=== PATIENT | female | born 1990 | race Caucasian/White ===

== ENCOUNTER 2020-05-22 11:09 | Outpatient (CLI) | payer OTHER ==
[2020-05-22 15:04] LABS: INR 1.1 (0.8-1.2)
[2020-05-22 15:20] LABS: ALBUMIN 3.8 g/dL (3.2-5.5); BILIRUBIN,TOTAL 1.7 mg/dL (0.2-1.0); CALCIUM 9.8 mg/dL (8.5-10.3); CREATININE 0.6 mg/dL (0.4-1.0); TOTAL PROTEIN 7.8 g/dL (6.7-8.2)
[2020-05-22 15:27] LABS: FOLATE 16.41 ng/mL (5.90 - >24.8)
== END 2020-05-22 11:10 | disposition home or self-care (01) ==
LOC: LAB.S 11:09
PROVIDERS: ATTEND Nurse Practitioner Family
DX: R74.01 Elevation of levels of liver transaminase levels (principal); R74.8 Abnormal levels of other serum enzymes; D69.6 Thrombocytopenia, unspecified
CPT/HCPCS: 36415; 80053; 81599; 82306; 82607; 82728; 82746; 82977; 83540; 83615; 83915; 83970; 84466; 84702; 85025; 85610; 86704; 86706; 86708; 86803; 87340

== ENCOUNTER 2020-05-30 08:00 | Outpatient (CLI) | payer OTHER ==
--- NOTE | 2020-05-30 14:26 | Ultrasound Report ---
PROCEDURE: Abdomen Limited INDICATIONS: ELEVATED LIVER ENZYMES TECHNIQUE: Real-time scanning was performed of the abdominal and retroperitoneal organs, with image documentatio n. COMPARISON: None. FINDINGS: Liver: Liver is enlarged with coarsened and nodular echotexture. Gallbladder: No stones are identified. Wall thickness is within normal limits measuring 1.7 mm. Biliary ducts: Intrahepatic bile ducts are non-dilated. Extrahepatic bile duct caliber measures 5.7 mm. Normal is 6-7 mm or less in diameter, or 10 mm or less post-cholecystectomy. Pancreas: Visualized portions of the pancreas are sonographically normal. Peripancreatic lymph node s present without pathologic enlargement. Spleen: Spleen is normal in size and homogeneous in echotexture. Kidneys: Kidneys are normal in size and echotexture. Right kidney measures 12.9 cm long. No hydron ephrosis or nephrolithiasis. No solid masses. IMPRESSION: 1. Hepatomegaly with nodular appearance suggestive of cirrhosis. Reviewed by: Cielo Cleary MD on 05/30/2020 2:25 PM PST Approved by: Cielo Cleary MD on 05/30/2020 2:25 PM PST Station ID: [id number]
--- NOTE | 2020-05-30 18:13 | Ultrasound Report ---
PROCEDURE: Head or Neck Soft Tissue INDICATIONS: ELEVATED LIVER ENZYMES TECHNIQUE: Real time scanning was performed of the neck region of interest, with image documentation . COMPARISON: None. FINDINGS: No soft tissue neck abnormality seen bilaterally in There are multiple lymph nodes presen t demonstrating normal esteban morphology, largest measuring up to 5.0 mm in short axis. IMPRESSION: Multiple morphologically normal-appearing in size bilateral neck lymph nodes. Reviewed by: DION Acevedo on 05/30/2020 6:12 PM PST Approved by: Cielo Cleary MD on 05/30/2020 6:12 PM PST Station ID: [id number]
== END 2020-05-30 08:01 | disposition home or self-care (01) ==
LOC: DI 08:00
PROVIDERS: ATTEND Nurse Practitioner Family
DX: R16.0 Hepatomegaly, not elsewhere classified (principal); R74.01 Elevation of levels of liver transaminase levels

== ENCOUNTER 2020-12-19 14:27 | Outpatient (CLI) | payer OTHER | END 2020-12-19 14:28 | disposition home or self-care (01) | LOC: COV 14:27 | PROVIDERS: ATTEND Family Medicine | DX: U07.1 COVID-19 (principal) ==

== ENCOUNTER 2021-03-15 18:13 | Emergency (ER) | payer OTHER ==
[2021-03-15 18:45] LABS: GLUCOSE, URINE (UA) NEGATIVE (NEGATIVE); KETONES,URINE (UA) 15 mg/dL (NEGATIVE); LEUKOCYTE ESTERASE, URINE NEGATIVE (NEGATIVE); NITRITE,URINE NEGATIVE (NEGATIVE); OCCULT BLOOD,URINE NEGATIVE (NEGATIVE); PROTEIN,URINE NEGATIVE (NEGATIVE); UROBILINOGEN,URINE 0.2 (NORMAL) E.U./dL (NORMAL)
[2021-03-15 18:51] LABS: BILIRUBIN,URINE SMALL (NEGATIVE); CLARITY,URINE CLEAR (CLEAR); ICTOTEST,URINE POSITIVE
[2021-03-15 18:52] LABS: HCG UR QUAL NEGATIVE
[2021-03-15 18:56] LABS: BACTERIA,URINE None Seen /HPF (None Seen); MUCUS,URINE Few Strands; RBC,URINE None Seen /HPF (0-5); SQUAMOUS EPITHELIAL CELL,UR FEW Squamous (<= Few); WBC,URINE 0-3 /HPF (0-5)
[2021-03-15 19:06] LABS: BASOPHILS # (AUTO) 0.1 10^3/uL (0.0-0.1); BASOPHILS % (AUTO) 0.8 %; EOSINOPHILS # (AUTO) 0.2 10^3/uL (0.0-0.7); EOSINOPHILS % (AUTO) 3.7 %; HCT - HEMATOCRIT 39.9 % (37.0-47.0); HGB - HEMOGLOBIN 13.4 g/dL (12.0-16.0); LYMPHOCYTES # (AUTO) 0.4 10^3/uL (1.5-3.5); LYMPHOCYTES % (AUTO) 5.6 %; MEAN CORPUSCULAR HEMOGLOBIN 31.4 pg (27.0-31.0); MEAN CORPUSCULAR HGB CONC 33.6 g/dL (32.0-36.0); MEAN CORPUSCULAR VOLUME 93.4 fL (81.0-99.0); MEAN PLATELET VOLUME 11.5 fL (7.9-10.8); MONOCYTES # (AUTO) 0.2 10^3/uL (0.0-1.0); MONOCYTES % (AUTO) 3.4 %; NEUTROPHILS # (AUTO) 5.5 10^3/uL (1.5-6.6); NEUTROPHILS % (AUTO) 86.3 %; PLT - PLATELET COUNT 64 10^3/uL (130-450); RED BLOOD COUNT 4.27 10^6/uL (4.20-5.40); RED CELL DISTRIBUTION WIDTH 14.1 % (12.0-15.0); WHITE BLOOD COUNT 6.4 x10^3/uL (4.8-10.8)
[2021-03-15 19:16] LABS: ALBUMIN 3.6 g/dL (3.2-5.5); BILIRUBIN,TOTAL 3.3 mg/dL (0.2-1.0); CALCIUM 9.1 mg/dL (8.5-10.3); CREATININE 0.6 mg/dL (0.4-1.0); POTASSIUM 3.9 mmol/L (3.5-5.0); TOTAL PROTEIN 7.3 g/dL (6.7-8.2)
--- NOTE | 2021-03-15 19:46 | ED Physician Documentation ---
History of Present Illness - Stated complaint Stated Complaint: ABD/BACK PX - Chief complaint Chief Complaint: Back Pain - History obtained from History obtained from: Patient - History of Present Illness Timing: Today Pain level max: 8 Pain level now: 6 - Additonal information Additional information: Patient is a 30-year-old female who states that she has a longstanding history of alcohol abuse. She states she drinks very heavily 2-3 times a week, but has not drank in 19 days. She complains of epigastric abdominal pain that started around noon today. Nothing makes it better or worse. She states she has had nausea and vomiting as well. She has a history of elevated liver function tests, likely secondary to her alcohol abuse. Review of Systems Ten Systems: 10 systems reviewed and negative Constitutional: denies: Fever, Chills Nose: denies: Rhinorrhea / runny nose, Congestion GI: denies: Vomiting, Diarrhea Skin: denies: Rash Musculoskeletal: denies: Neck pain, Back pain Neurologic: denies: Focal weakness, Numbness, Headache PD PAST MEDICAL HISTORY - Past Medical History Past Medical History: No - Past Surgical History Past Surgical History: No - Allergies Allergies/Adverse Reactions: Allergies Allergy/AdvReac Type Severity Reaction Status Date / Time No Known Drug Allergies Allergy Verified 03/15/21 18:29 - Living Situation Living Situation: reports: With family Living Arrangement: reports: At home - Social History Does the pt drink ETOH?: Yes Does the pt have substance abuse?: No - Family History Family history: reports: Non contributory PD ED PE NORMAL - Vitals Vital signs reviewed: Yes - General General: Alert and oriented X 3, No acute distress, Well developed/nourished - HEENT HEENT: PERRL, Moist mucous membranes - Neck Neck: Supple, no meningeal sign - Cardiac Cardiac: RRR - Respiratory Respiratory: No respiratory distress, Clear bilaterally - Abdomen Abdomen: Normal bowel sounds, Soft, Non distended, Other (TTP RUQ, + vasquez's sign) - Derm Derm: Warm and dry - Extremities Extremities: No edema - Neuro Neuro: Alert and oriented X 3 - Psych Psych: Normal mood, Normal affect Results - Vitals Vitals: Vital Signs - 24 hr 03/15/21 03/15/21 03/15/21 18:24 19:44 21:00 Temperature 98.9 C H Heart Rate 92 90 89 Respiratory 18 18 Rate Blood Pressure 128/78 128/93 H 129/74 O2 Saturation 98 98 100 Oxygen O2 Source Room air - Labs Labs: Laboratory Tests 03/15/21 03/15/21 03/15/21 18:30 18:35 18:56 WBC 6.4 RBC 4.27 Hgb 13.4 Hct 39.9 MCV 93.4 MCH 31.4 H MCHC 33.6 RDW 14.1 Plt Count 64 L MPV 11.5 H Neut # (Auto) 5.5 Lymph # (Auto) 0.4 L Dade # (Auto) 0.2 Eos # (Auto) 0.2 Baso # (Auto) 0.1 Absolute Nucleated RBC 0.00 Nucleated RBC % 0.0 PT INR APTT Sodium Potassium Chloride Carbon Dioxide Anion Gap BUN Creatinine Estimated GFR (MDRD) Glucose Calcium Total Bilirubin AST ALT Alkaline Phosphatase Total Protein Albumin Globulin Albumin/Globulin Ratio Lipase Urine Color DARK YELLOW Urine Clarity CLEAR Urine pH 6.0 Ur Specific Edison 1.025 Urine Protein NEGATIVE Urine Glucose (UA) NEGATIVE Urine Ketones 15 H Urine Occult Blood NEGATIVE Urine Nitrite NEGATIVE Urine Bilirubin SMALL H Urine Urobilinogen 0.2 (NORMAL) Ur Leukocyte Esterase NEGATIVE Urine RBC None Seen Urine WBC 0-3 Ur Squamous Epith Cells FEW Squamous Urine Bacteria None Seen Urine Mucus Few Strands Urine Culture Comments NOT INDICATED Urine HCG, Qual NEGATIVE Ethyl Alcohol < 5.0 03/15/21 03/15/21 18:56 19:48 WBC RBC Hgb Hct MCV MCH MCHC RDW Plt Count MPV Neut # (Auto) Lymph # (Auto) Dade # (Auto) Eos # (Auto) Baso # (Auto) Absolute Nucleated RBC Nucleated RBC % PT 12.7 H INR 1.1 APTT 34.9 H Sodium 134 L Potassium 3.9 Chloride 100 L Carbon Dioxide 24 Anion Gap 10.0 BUN 11 Creatinine 0.6 Estimated GFR (MDRD) 116 Glucose 110 H Calcium 9.1 Total Bilirubin 3.3 H AST 112 H ALT 133 H Alkaline Phosphatase 479 H Total Protein 7.3 Albumin 3.6 Globulin 3.7 Albumin/Globulin Ratio 1.0 Lipase 29 Urine Color Urine Clarity Urine pH Ur Specific Edison Urine Protein Urine Glucose (UA) Urine Ketones Urine Occult Blood Urine Nitrite Urine Bilirubin Urine Urobilinogen Ur Leukocyte Esterase Urine RBC Urine WBC Ur Squamous Epith Cells Urine Bacteria Urine Mucus Urine Culture Comments Urine HCG, Qual Ethyl Alcohol - Rads (name of study) CT abd.pelvis Radiology: Final report received, EMP read contemporaneously, See rad report RUQ US Radiology: Other (awaiting results) PD MEDICAL DECISION MAKING - ED course Complexity details: reviewed results, re-evaluated patient, considered differential, d/w patient ED course: Patient is a 30-year-old female with abdominal pain, vomiting. Hepatosplenomegaly with abdominal and paraesophageal varices on CT scan along with a distended gallbladder. No gallstones on CT. Awaiting ultrasound results for final disposition. Patient will be signed out to Dr. Reynolds awaiting final disposition and reevaluation. Pain and nausea improved. This document was made in part using voice recognition software. While efforts are made to proofread this document, sound alike and grammatical errors may occur. IMPRESSION: 1. Hepatosplenomegaly. 2. Abdominal and paraesophageal varices. 3. Distended gallbladder. No gallstones identified. Departure - Departure Clinical Impression: Abdominal pain Qualifiers: Abdominal location: unspecified location Qualified Code(s): R10.9 - Unspecified abdominal pain Vomiting Qualifiers: Vomiting type: unspecified Nausea presence: with nausea Qualified Code(s): R11.2 - Nausea with vomiting, unspecified Esophageal varices Qualifiers: Esophageal varices type: unspecified type Esophageal varices bleeding: without bleeding Qualified Code(s): I85.00 - Esophageal varices without bleeding Condition: Stable
[2021-03-15] MEDS ORDERED: IOPAMIDOL-300 100 ML VIAL ONE (19:50)
[2021-03-15 20:06] LABS: INR 1.1 (0.8-1.2); PT - PROTHROMBIN TIME 12.7 secs (9.9-12.6)
[2021-03-15 20:13] LABS: PARTIAL THROMBOPLASTIN TIME 34.9 secs (24.9-33.3)
[2021-03-15] MEDS: MORPHINE 2 MG/ML CARPUJECT IVP STA (20:34)
[2021-03-15] MEDS: IOPAMIDOL-300 100 ML VIAL IVP ONE (21:03)
--- NOTE | 2021-03-15 21:27 | CT Report ---
PROCEDURE: Abdomen/Pelvis W INDICATIONS: epigastric abd pain CONTRAST: IV CONTRAST: Isovue 300 ml: 100 PO CONTRAST: *NO PO CONTRAST TECHNIQUE: After the administration of intravenous contrast, 5 mm thick sections acquired from the diaphragms to the symphysis. 5 mm thick coronal and sagittal reformats were acquired. For radiation dose reducti on, the following was used: automated exposure control, adjustment of mA and/or kV according to grazyna ent size. COMPARISON: None. FINDINGS: Image quality: Excellent. ABDOMEN: Lung bases: Minimal thickening at the left diaphragm. No pleural effusion. Heart size is normal. Solid organs: Liver is prominent. No focal lesion. Gallbladder is distended. No calcified gallstone s. Biliary system is non dilated. Pancreas enhances normally. Splenomegaly. Spleen measures 19.2 cm . No adrenal nodules. Kidneys demonstrate normal size and enhancement, without hydronephrosis. Tiny hypodensity at the inferior pole the left kidney. Peritoneum and bowel: No small bowel obstruction. Fluid-filled loops of small bowel in the lower abdo men. Normal appendix. No free fluid or air. Nodes and vessels: No retroperitoneal or mesenteric adenopathy by size criteria. Aorta and inferior vena cava are normal in size. Paraesophageal varices. Prominent left abdomen vein. Upper abdominal v arices. Portal vein and splenic vein are prominent. Retroaortic left renal vein. Miscellaneous: No ventral hernias. PELVIS: Genitourinary: Bladder wall thickness is normal. Anteverted uterus. Miscellaneous: No inguinal hernias or adenopathy. Bones: No suspicious bony lesions. Minimal opacity at the left posterior ilium, (3/69). No vertebral body compression fractures. L3-L4 ankylosis. IMPRESSION: 1. Hepatosplenomegaly. 2. Abdominal and paraesophageal varices. 3. Distended gallbladder. No gallstones identified. Reviewed by: Juan Cee MD on 03/15/2021 9:25 PM [facility] Approved by: Juan Cee MD on 03/15/2021 9:25 PM PST Station ID: [id number]
[2021-03-15] MEDS: PROMETHAZINE INJ 25 MG in SODIUM CHLORIDE 0.9% 50 ML IV STA (21:44)
[2021-03-15] MEDS ORDERED: PROMETHAZINE 25 MG/1 ML VIAL ONE (21:47)
--- NOTE | 2021-03-15 23:04 | Ultrasound Report ---
PROCEDURE: Abdomen Limited INDICATIONS: RUQ abd pain TECHNIQUE: Real-time scanning was performed of the right upper quadrant, with image documentation. COMPARISON: Same day CT abdomen and pelvis.. FINDINGS: Liver: Liver limits of normal in size measuring 17.3 cm. Coarsened echotexture. Gallbladder: Distended. Area of focal thickening at at the lower gallbladder measuring approximately 2.1 cm. The gallbladder elsewhere measures less than 0.3 cm. There is trace pericholecystic fluid. Biliary ducts: Intrahepatic bile ducts are prominent. Extrahepatic bile duct caliber measures 8 mm. Normal is 6-7 mm or less in diameter, or 10 mm or less post-cholecystectomy. Pancreas: Visualized portions of the pancreas are sonographically normal. The tail is not well seen. Small peripancreatic node with a short axis diameter of 1 cm. Right kidney: Measures 11.9 cm. Cortex 1.7 cm. No hydronephrosis. IVC: Intrahepatic inferior vena cava is patent. IMPRESSION: 1. There is a focal area of gallbladder wall thickening. There appears to be trace pericholecystic fl uid. The gallbladder is not distended. No gallstones are seen. This raises the possibility of acalcul ous cholecystitis. HIDA scan would be helpful for further evaluation. 2. The CBD is mildly dilated measuring 0.8 cm. The intrahepatic ducts are prominent. -Recommend further evaluation with MRCP. 3. Increased echogenicity of the hepatic parenchyma. This is most commonly seen in hepatic steatosis. Other forms of hepatocellular disease could have a similar appearance. Reviewed by: Juan Cee MD on 03/15/2021 11:02 PM [facility] Approved by: Juan Cee MD on 03/15/2021 11:02 PM PST Station ID: [id number]
[2021-03-15] MEDS: ONDANSETRON 4 MG/2 ML VIAL IVP STA (23:15)
[2021-03-16] MEDS: SODIUM CHLORIDE 0.9% 1,000 ML IV STA (01:07)
[2021-03-16] MEDS: CEFEPIME 2 GM in SODIUM CHLORIDE 0.9% MINIBAG 100 ML IV STA (01:43)
[2021-03-16] MEDS: DEXAMETHASONE 10 MG/ML VIAL IVP STA (01:43)
[2021-03-16 02:29] VITALS: BP 103/67
== END 2021-03-16 02:29 | disposition home or self-care (01) ==
LOC: ED 18:13
DX: R10.13 Epigastric pain (principal); R11.2 Nausea with vomiting, unspecified; I85.00 Esophageal varices without bleeding; I86.8 Varicose veins of other specified sites; R16.2 Hepatomegaly with splenomegaly, not elsewhere classified
CPT/HCPCS: 36415; 74177; 76705; 80053; 80320; 81001; 81025; 83690; 85025; 85610; 85730; 96365; 96367; 96375; 99284; 99285; J7040; Q9967; 87086

== ENCOUNTER 2021-05-02 08:59 | Outpatient (CLI) | payer OTHER | END 2021-05-02 09:00 | disposition home or self-care (01) | LOC: NS 08:59 | PROVIDERS: ATTEND Nurse Practitioner Family | DX: E66.9 Obesity, unspecified (principal); Z71.3 Dietary counseling and surveillance; Z71.89 Other specified counseling; Z68.34 Body mass index [BMI] 34.0-34.9, adult | CPT/HCPCS: 97802 ==

== ENCOUNTER 2022-02-07 07:42 | Outpatient (CLI) | payer OTHER ==
--- NOTE | 2022-02-07 13:37 | Ultrasound Report ---
PROCEDURE: Abdomen Complete INDICATIONS: ALCOHOL CIRRHOSIS TECHNIQUE: Real-time scanning was performed of the abdominal and retroperitoneal organs, with image documentatio n. COMPARISON: None. FINDINGS: Liver: The liver is of diffuse coarsened echotexture. No focal liver masses. Gallbladder: Unremarkable. Biliary ducts: Intrahepatic bile ducts are non-dilated. Extrahepatic bile duct caliber measuresmm 6 .4 mm at the common bile duct and tapering to 2.3 mm at the common hepatic duct. Normal is 6-7 mm or less in diameter, or 10 mm or less post-cholecystectomy. Pancreas: Visualized portions of the pancreas are sonographically normal. Spleen: Marked splenomegaly, measuring 21.7 x 10.5 x 17.5 cm. Kidneys: Kidneys are normal in size and echotexture. Right kidney measures 12.5 cm long; left kidne y measures 14.3 cm long. No hydronephrosis or nephrolithiasis. No solid masses. Aorta: Visualized aorta is normal in caliber at less than 3 cm. Iliacs: Proximal common iliac arteries are normal in caliber at less than 2.5 cm. IVC: Intrahepatic inferior vena cava is patent. Miscellaneous: No free abdominal fluid. Left upper quadrant varicosities. Question enlarged lymph n ode in the betty hepatis region measuring 2.9 x 0.8 x 1.9 cm. IMPRESSION: 1. No liver masses are identified. 2. Marked splenomegaly and left upper quadrant varicosities are consistent with portal venous hyperte nsion. 3. Prominent betty hepatis lymph node. Reviewed by: Anton Love MD on 02/07/2022 1:36 PM PST Approved by: Anton Love MD on 02/07/2022 1:36 PM PST Station ID: [id number]
== END 2022-02-07 07:43 | disposition home or self-care (01) ==
LOC: DI 07:42
PROVIDERS: ATTEND Internal Medicine
DX: K70.30 Alcoholic cirrhosis of liver without ascites (principal); R16.1 Splenomegaly, not elsewhere classified; R59.0 Localized enlarged lymph nodes

== ENCOUNTER 2022-07-19 15:06 | Outpatient (CLI) | payer OTHER ==
--- NOTE | 2022-07-19 17:31 | Ultrasound Report ---
PROCEDURE: Pelvic w/Transvaginal INDICATIONS: IRREGULAR PERIODS TECHNIQUE: Real-time scanning was performed of the pelvic organs, with image documentation. Additional endovagi nal scanning was necessary due to incomplete visualization of the adnexal and endometrial structures by transabdominal scanning. COMPARISON: None. FINDINGS: Uterus: Uterus is anteverted and normal in size at 8.4 x 5 x 3.8 cm. The myometrium is homogeneous. The endometrium measures 4 mm in combined thickness. No fibroids seen. Ovaries: The right ovary measures 3.4 x 2.6 x 2.2 cm, with a calculated ovarian volume of 10 cc. Th e left ovary measures 3.8 x 3.4 x 2.3 cm, with a calculated ovarian volume of 15 cc. The ovaries hav e a normal sonographic appearance. Greater than 12 follicles can be seen in each ovary. No adnexal masses are seen. No cystic lesions measuring greater than 3 cm. Other: No pathologic free abdominal or pelvic fluid. IMPRESSION: 1. No endometrial thickening. 2. Greater than 12 ovarian follicles. This finding could be seen in PCOS. Recommend clinical correlat ion. Reviewed by: Juan Cee MD on 07/19/2022 5:30 PM PDT Approved by: Juna Cee MD on 07/19/2022 5:30 PM PDT Station ID: [id number]
== END 2022-07-19 15:07 | disposition home or self-care (01) ==
LOC: DI 15:06
PROVIDERS: ATTEND Nurse Practitioner Family
DX: N92.6 Irregular menstruation, unspecified (principal)

== ENCOUNTER 2022-09-27 07:28 | Outpatient (CLI) | payer OTHER ==
--- NOTE | 2022-09-27 15:13 | Ultrasound Report ---
PROCEDURE: Abdomen Limited INDICATIONS: ALOHOL CIRRHOSIS TECHNIQUE: Real-time focused scanning was performed of the abdomen, with image documentation. COMPARISONS: 02/07/2022, 03/15/2021 FINDINGS: Liver measures 17 cm. Overall echotexture is coarse and increased. No suspicious focal lesion. Promin ent portal vein is present. Cirrhotic contour. No focal gallbladder tenderness. Gallbladder within normal limits. CBD measures 7 mm. Pancreas within normal limits. Right kidney measures 11 cm. IVC is patent. Proximal aorta measures 1.6 cm. IMPRESSION: Cirrhosis. No suspicious focal lesion. Prominent portal vein consistent with associated high portal p ressures. Recommend continued HCC surveillance. Borderline dilated CBD is 7 mm. Attention on follow-up and LFTs. This was seen on prior exams. Reviewed by: Jone Hall MD on 09/27/2022 3:11 PM PDT Approved by: Jone Hall MD on 09/27/2022 3:11 PM PDT Station ID: [id number]
== END 2022-09-27 07:29 | disposition home or self-care (01) ==
LOC: DI 07:28
PROVIDERS: ATTEND Internal Medicine
DX: K70.30 Alcoholic cirrhosis of liver without ascites (principal); K83.8 Other specified diseases of biliary tract

== ENCOUNTER 2023-02-07 08:00 | Outpatient (CLI) | payer OTHER ==
[2023-02-07 20:07] LABS: BILIRUBIN,URINE NEGATIVE (NEGATIVE); GLUCOSE, URINE (UA) NEGATIVE (NEGATIVE); KETONES,URINE (UA) NEGATIVE (NEGATIVE); LEUKOCYTE ESTERASE, URINE NEGATIVE (NEGATIVE); NITRITE,URINE NEGATIVE (NEGATIVE); OCCULT BLOOD,URINE NEGATIVE (NEGATIVE); PROTEIN,URINE NEGATIVE (NEGATIVE); UROBILINOGEN,URINE 1 (NORMAL) E.U./dL (NORMAL)
[2023-02-07 20:15] LABS: CLARITY,URINE CLEAR (CLEAR)
[2023-02-07 20:16] LABS: BACTERIA,URINE Few /HPF (None Seen); RBC,URINE 0-5 /HPF (0-5); SQUAMOUS EPITHELIAL CELL,UR RARE Squamous (<= Few); WBC,URINE 0-3 /HPF (0-5)
== END 2023-02-07 23:59 | disposition home or self-care (01) ==
LOC: LAB.S 08:00
PROVIDERS: ATTEND Internal Medicine
DX: R35.89 Other polyuria (principal)
CPT/HCPCS: 81001; 87086

== ENCOUNTER 2023-05-26 07:57 | Outpatient (CLI) | payer OTHER ==
--- NOTE | 2023-05-28 17:09 | Ultrasound Report ---
PROCEDURE: Soft Tissue Head or Neck INDICATIONS: SUCUTANEOUS MASS TECHNIQUE: Real-time scanning was performed of the left cheek, with image documentation. COMPARISON: None FINDINGS: Ultrasound examination of left cheek at patient's reported area of palpable lump shows a heterogeneou sly hypoechoic area in subcutaneous soft tissue with possible communication to the skin surface and m easures 1.4 x 0.3 x 0.8 cm in size. Mild to moderate internal vascularity and surrounding subcutaneou s soft tissue edema is seen. IMPRESSION: Complex fluid collection within subcutaneous soft tissue in left cheek corresponding to patient's reported area of palpable lump and measures 1.4 x 0.3 x 0.8 cm in size which may represent a small abscess collection. A small cystic mass cannot be entirely excluded. Suggests clinical correl ation and follow-up. Reviewed by: Nba Summers MD on 05/28/2023 5:07 PM PST Approved by: Nba Summers MD on 05/28/2023 5:07 PM PST Station ID: [id number]
== END 2023-05-26 07:58 | disposition home or self-care (01) ==
LOC: DI 07:57
PROVIDERS: ATTEND Internal Medicine
DX: R22.0 Localized swelling, mass and lump, head (principal)

== ENCOUNTER 2023-05-26 07:58 | Outpatient (CLI) | payer OTHER ==
--- NOTE | 2023-05-26 20:55 | Ultrasound Report ---
PROCEDURE: Abdomen Limited INDICATIONS: Alcoholic Cirrhosis TECHNIQUE: Ultrasound of the abdominal right upper quadrant was obtained with image documentation. COMPARISONS: None. FINDINGS: Liver: Echogenic liver shows mild capsular micronodularity. No focal mass lesion. Main portal vein p rominent 1.9 cm in diameter with partially visualized hepatopedal flow Gallbladder: Sonolucent without cholelithiasis. No gallbladder wall thickening. No pericholecystic fluid or Serrano's sign. Common Bile Duct: 6 mm. Pancreas: Unremarkable as visualized. Right Kidney: Appropriate in size and echotexture. No evidence of hydronephrosis. No shadowing calc irina. No solid or cystic mass lesion. IMPRESSION: Mild hepatic cirrhotic echotexture with hepatopedal flow in the main portal vein. The flow is only pa rtially visualized. Consider follow-up CT abdomen pelvis with contrast to assess for portal vein nono cclusive thrombus Reviewed by: Joshua Torres MD on 05/26/2023 7:53 PM [facility] Approved by: Joshua Torres MD on 05/26/2023 7:53 PM [facility] Station ID: [id number]
== END 2023-05-26 07:59 | disposition home or self-care (01) ==
LOC: DI 07:58
PROVIDERS: ATTEND Internal Medicine
DX: K70.30 Alcoholic cirrhosis of liver without ascites (principal)

== ENCOUNTER 2023-07-03 08:15 | Outpatient (CLI) | payer OTHER ==
[2023-07-03 14:44] LABS: BASOPHILS # (AUTO) 0.1 10^3/uL (0.0-0.1); BASOPHILS % (AUTO) 1.5 %; EOSINOPHILS # (AUTO) 0.2 10^3/uL (0.0-0.7); EOSINOPHILS % (AUTO) 5.5 %; HCT - HEMATOCRIT 38.9 % (37.0-47.0); HGB - HEMOGLOBIN 12.5 g/dL (12.0-16.0); LYMPHOCYTES % (AUTO) 27.6 %; MEAN CORPUSCULAR HEMOGLOBIN 32.4 pg (27.0-31.0); MEAN CORPUSCULAR HGB CONC 32.1 g/dL (32.0-36.0); MEAN CORPUSCULAR VOLUME 100.8 fL (81.0-99.0); MEAN PLATELET VOLUME 12.2 fL (7.9-10.8); MONOCYTES # (AUTO) 0.2 10^3/uL (0.0-1.0); MONOCYTES % (AUTO) 4.9 %; NEUTROPHILS # (AUTO) 2.1 10^3/uL (1.5-6.6); NEUTROPHILS % (AUTO) 60.5 %; PLT - PLATELET COUNT 59 10^3/uL (130-450); RED BLOOD COUNT 3.86 10^6/uL (4.20-5.40); RED CELL DISTRIBUTION WIDTH 14.6 % (12.0-15.0); WHITE BLOOD COUNT 3.4 x10^3/uL (4.8-10.8)
[2023-07-03 14:55] LABS: ALBUMIN 3.2 g/dL (3.2-5.5); ALBUMIN/GLOBULIN RATIO 0.9 (1.0-2.2); BILIRUBIN,TOTAL 2.8 mg/dL (0.2-1.0); CALCIUM 9.2 mg/dL (8.5-10.3); CREATININE 0.4 mg/dL (0.6-1.3); POTASSIUM 3.9 mmol/L (3.5-4.5); TOTAL PROTEIN 6.7 g/dL (6.4-8.9)
[2023-07-03 15:17] LABS: INR 1.1 (0.8-1.2); PT - PROTHROMBIN TIME 11.9 secs (9.9-12.6)
== END 2023-07-03 08:16 | disposition home or self-care (01) ==
LOC: LAB.S 08:15
PROVIDERS: ATTEND Internal Medicine
DX: E55.9 Vitamin D deficiency, unspecified (principal); K70.30 Alcoholic cirrhosis of liver without ascites
CPT/HCPCS: 36415; 80053; 82105; 85025; 85610

== ENCOUNTER 2023-11-20 06:57 | Outpatient (CLI) | payer BC ==
--- NOTE | 2023-11-21 14:39 | Ultrasound Report ---
PROCEDURE: Abdomen Limited INDICATIONS: CIRRHOSIS TECHNIQUE: Ultrasound of the abdominal right upper quadrant was obtained with image documentation. COMPARISONS: 05/26/2023, 09/27/2022 FINDINGS: Liver: Nodular echogenic heterogenous hepatic parenchyma prominent main portal vein diameter 22.5 mm . Hepatopedal flow identified. Recanalized umbilical vein Gallbladder: Sonolucent without cholelithiasis. No gallbladder wall thickening. No pericholecystic fluid or Serarno's sign. Common Bile Duct: 7.3 mm. Pancreas: Unremarkable as visualized. Right Kidney: Appropriate in size and echotexture. No evidence of hydronephrosis. No shadowing calc irina. No solid or cystic mass lesion. IMPRESSION: Hepatic cirrhosis. Prominent main portal vein with appropriate vascularity Reviewed by: Joshua Torres MD on 11/21/2023 1:38 PM [facility] Approved by: Joshua Torres MD on 11/21/2023 1:38 PM [facility] Station ID: [id number]
== END 2023-11-20 06:58 | disposition home or self-care (01) ==
LOC: DI 06:57
PROVIDERS: ATTEND Internal Medicine
DX: K70.30 Alcoholic cirrhosis of liver without ascites (principal)